=== PATIENT | female | born 1940 | race Caucasian/White ===

== ENCOUNTER 2019-08-16 07:51 | Day surgery (SDC) ==
--- NOTE | 2019-08-10 12:54 | EKG Report ---
Test Performed on : 08/10/2019 12:47:22 PM Test Reason : PAT Blood Pressure : / mmHG Vent. Rate : 076 BPM Atrial Rate : 076 BPM P-R Int : 152 ms QRS Dur : 100 ms QT Int : 420 ms P-R-T Axes : 069 079 021 degrees QTc Int : 472 ms Normal sinus rhythm. Low voltage QRS Nonspecific T wave abnormality Prolonged QT Abnormal ECG When compared with ECG of 29-SEP-2012 13:07, T wave inversion now evident in Inferior leads Nonspecific T wave abnormality now evident in Anterior leads Confirmed by Jere VALDEZ, P.J.M ([id number]) on 08/10/2019 8:00:48 PM
[2019-08-10 13:18] LABS: URINE SOURCE CLEAN CATCH
[2019-08-10 13:26] LABS: BASO% 0.1 % (0.0-0.8); EOS% 0.2 % (0.0-10.0); HEMATOCRIT 34.2 % (37.0-47.0); HEMOGLOBIN 11.1 g/dL (12.0-16.0); IMM GRAN% 0.2 % (0.0-0.5); LYMPH% 19.8 % (20.5-51.1); MCH 27.1 PG (27-31); MCHC 32.5 g/dL (33-37); MCV 83.6 FL (81-99); MONO% 10.2 % (1.7-9.3); NEUT% 69.5 % (42.2-75.2); PLT 247 X1000 (130-400); RBC 4.09 XMIL (4.2-5.4); RDW 14.6 % (11.5-14.5); WBC 10.55 X1000 (4.8-10.8)
[2019-08-10 13:27] LABS: BASO# 0.01 X1000 (0.0-0.2); EOS# 0.02 X1000 (0.0-0.7); IMM GRAN# 0.02 X1000 (0.0-0.04); LYMPH# 2.09 X1000 (1.2-3.4); MONO# 1.08 X1000 (0.11-0.59); NEUT# 7.33 X1000 (1.4-6.5)
[2019-08-10 13:40] LABS: INR 1.17; PROTIME 15.1 Seconds (11.0-16.0); PTT 29.5 Seconds (22.3-41.8)
[2019-08-10 13:43] LABS: BILIRUBIN URINE NEGATIVE (NEGATIVE); BLOOD URINE NEGATIVE (NEGATIVE); COLOR YELLOW; GLUCOSE URINE NEGATIVE (NEGATIVE); KETONE URINE NEGATIVE (NEGATIVE); LEUKOCYTES URINE NEGATIVE (NEGATIVE); NITRITE URINE NEGATIVE (NEGATIVE); PH URINE 5.5; PROTEIN URINE NEGATIVE (NEGATIVE); SP GRAVITY URINE 1.027; TURBIDITY URINE CLEAR (CLEAR); UROBILINOGEN URINE 3 mg/dL (NORMAL)
[2019-08-10 13:45] LABS: UR EPITHELIAL CELLS <10 /HPF (<10); URINE BACTERIA NEGATIVE /HPF; URINE RBC <10 /HPF (<10); URINE WBC <10 /HPF (<10)
[2019-08-10 13:47] LABS: HEMOGLOBIN A1C 5.9 % (4.8-6.0)
[2019-08-10 14:19] LABS: CALCIUM 9.4 mg/dL (8.8-10.2); POTASSIUM 2.9 mmol/L (3.5-5.1)
[2019-08-16] MEDS ORDERED: COLACE ONE (08:13)
[2019-08-16] MEDS ORDERED: PEPCID ONE (08:13)
[2019-08-16] MEDS ORDERED: REGLAN ONE (08:13)
[2019-08-16] MEDS ORDERED: KEFZOL 1 GM/D5W 1 GM/50 ML IVPB ONE (08:14)
[2019-08-16] MEDS ORDERED: LYRICA ONE (08:14)
[2019-08-16] MEDS ORDERED: CELEBREX ONE (08:14)
[2019-08-16] MEDS ORDERED: LR 1,000 ML ONE (08:14)
[2019-08-16] MEDS ORDERED: FENTANYL ONE (09:13)
[2019-08-16] MEDS ORDERED: DIPRIVAN 1% ONE (09:13)
[2019-08-16] MEDS ORDERED: MARCAINE 0.25% PF ONE (09:53)
[2019-08-16] MEDS ORDERED: TORADOL ONE (09:53)
[2019-08-16] MEDS ORDERED: DURAMORPH ONE (09:53)
[2019-08-16] MEDS ORDERED: VANCOMYCIN ONE (09:53)
[2019-08-16] MEDS ORDERED: EXPAREL 1.3% ONE (09:54)
[2019-08-16] MEDS ORDERED: CYKLOKAPRON 1,000 MG/NS 2,000 MG/200 ML IVPB ONE (09:54)
[2019-08-16] MEDS ORDERED: SODIUM CHLORIDE 0.9% ONE (09:54)
[2019-08-16] MEDS ORDERED: VERSED ONE (10:27)
[2019-08-16] MEDS ORDERED: LABETALOL (DOSE) ONE (11:08)
[2019-08-16] MEDS ORDERED: APRESOLINE ONE (11:12)
[2019-08-16] MEDS ORDERED: ZOFRAN ONE (11:48)
[2019-08-16] MEDS ORDERED: OFIRMEV 1000 MG/ISOTONIC SOLN 1,000 MG/100 ML BOTTLE ONE (11:48)
[2019-08-16] MEDS ORDERED: DECADRON ONE (11:48)
[2019-08-16] MEDS ORDERED: NS 1,000 ML ONE (12:35)
[2019-08-16] MEDS: DILAUDID ONE ×2 (12:51→12:56)
--- NOTE | 2019-08-16 13:16 | Diag Imaging Result Doc PS360 ---
KNEE 1-2 VIEWS-RIGHT - 08/16/2019 INDICATION: R TKA TECHNIQUE: Two views COMPARISON: 08/08/2019 FINDINGS: There has been right total knee arthroplasty. Alignment is anatomic. No hardware fracture or loosening. IMPRESSION: No complication. Electronically signed by Juan C Aponte 08/16/2019 1:13 PM
[2019-08-16 13:31] LABS: URINE SOURCE CATH
[2019-08-16 13:34] LABS: BILIRUBIN URINE NEGATIVE (NEGATIVE); BLOOD URINE NEGATIVE (NEGATIVE); COLOR YELLOW; GLUCOSE URINE NEGATIVE (NEGATIVE); KETONE URINE NEGATIVE (NEGATIVE); LEUKOCYTES URINE NEGATIVE (NEGATIVE); NITRITE URINE NEGATIVE (NEGATIVE); PROTEIN URINE NEGATIVE (NEGATIVE); SP GRAVITY URINE 1.009; TURBIDITY URINE CLEAR (CLEAR); UROBILINOGEN URINE NORMAL (NORMAL)
[2019-08-16 13:35] LABS: UR EPITHELIAL CELLS <10 /HPF (<10); URINE BACTERIA NEGATIVE /HPF; URINE RBC <10 /HPF (<10); URINE WBC <10 /HPF (<10)
[2019-08-16] MEDS: NS 1,000 ML IV SCH ×2 (14:45→23:12)
[2019-08-16] MEDS ORDERED: MORPHINE IV PRN ×3 (14:45)
[2019-08-16] MEDS ORDERED: ZOFRAN PO PRN (14:45)
[2019-08-16] MEDS ORDERED: OXY IR PO PRN ×2 (14:45)
[2019-08-16] MEDS ORDERED: ZOFRAN ODT PO PRN (14:45)
[2019-08-16] MEDS: KEFZOL 1 GM/D5W 1 GM/50 ML IVPB IV SCH (16:59)
[2019-08-16] MEDS: TYLENOL PO SCH ×2 (16:59→23:11)
[2019-08-16] MEDS: ULTRAM PO SCH ×2 (16:59→23:11)
--- NOTE | 2019-08-16 19:34 | OPERATIVE NOTE ---
PROCEDURE DATE: 08/16/2019 PREOPERATIVE DIAGNOSIS: Degenerative joint disease with valgus deformity, right knee. POSTOPERATIVE DIAGNOSIS: Degenerative joint disease with valgus deformity, right knee. PROCEDURE: Right total knee replacement. SURGEON: Dr. Leda Garcia. MARRIAGE THERAPIST: Adalid Webster. ANESTHESIA: General. COMPLICATIONS: None. PROCEDURE IN DETAIL: 79-year-old female presents for right total knee replacement. Risks, benefits, and no guarantees were discussed and she was willing to proceed. She was taken to the operating room and satisfactory anesthesia obtained. The right leg was prepped and draped in the usual sterile fashion. A time-out was taken, confirming operative site, procedure, and patient. The leg was wrapped in an Esmarch and tourniquet inflated to 300 mmHg. A midline incision was made over the front of the knee followed by a quad tendon sparing arthrotomy. The patella was everted and resurfaced with freehand technique and subluxed laterally. With the knee flexed, an intramedullary hole was made in the distal femur and the distal femoral cutting block secured in 5 degrees of valgus. Femoral resection was made and the femur sized to a size 5 DePuy Attune femoral implant. The 4-in-1 block was secured and the anterior, posterior, and chamfer cuts sequentially made. A notch was created for a posterior stabilized design using the provided notch guide. Any remaining osteophytes were debrided off the femur. Next, the tibial cutting block was secured with extramedullary alignment and the tibial resection made. The flexion and extension gaps were equal with the 5 mm spacer. The tibia was sized to a size 5 tibial trial. A trial reduction was performed with trial components with good range of motion and stability. The patella was sized to a 35 medialized dome patella. Drill holes were placed for the patella and femoral implants, and all trial components removed. The bony surfaces were thoroughly irrigated with pulsatile lavage. Cement with 1 g of vancomycin was utilized to cement a DePuy size 5 rotating platform tibial base plate, a size 5 standard width right posterior stabilized femoral component, and a 35 medialized dome patella. While the cement cured, the excess cement was removed with a [place] elevator. The joint capsule was injected with Exparel and a Hemovac drain placed. After curing the cement, a size 5 mm thick posterior stabilized polyethylene bearing was secured into the tibial tray, and the knee reduced. Final range of motion was 0 to 120 degrees with midline patellar tracking. The arthrotomy was copiously irrigated with irrigant. It was closed over the drain with #1 Vicryl in the arthrotomy, 2-0 Vicryl in the subcu, and skin italia on the skin edges. Sterile dressings completed the closure and patient was recovered from anesthesia and transferred to the recovery room in stable condition. No intraoperative complications were noted. Instrument count and sponge count were correct at the time of closure. cc: Chele Garcia MD
--- NOTE | 2019-08-16 20:35 | ORTHOPAEDICS PROGRESS NOTE ---
DATE: 08/16/2019 SUBJECTIVE DATA: Ms. Isbell is seen postoperatively day 0 for her right total knee arthroplasty. She states she has only been up in her room for about 20 minutes. Family at bedside reports she is still somewhat sleepy. She denies pain at this time. OBJECTIVE DATA: The bandages are clean and dry throughout lower extremity. There is negative Homans sign. There is decreased sensation at this time. There is good pedal pulses. There is good capillary refill in the toes. ASSESSMENT: Degenerative joint disease right knee with right total knee arthroplasty. PLAN: We plan to hopefully get Ms. Isbell up later on this afternoon or tomorrow with physical therapy and walking. If she is doing well, we will likely send her home tomorrow. Dictated by SOPHIA Hughes for Chele Garcia MD cc: SOPHAI Hughes MD
[2019-08-16] MEDS: CELEBREX PO SCH (20:47)
[2019-08-16] MEDS: PERIDEX MT SCH (20:48)
[2019-08-16] MEDS: COLACE PO SCH (20:49)
[2019-08-17] MEDS: KEFZOL 1 GM/D5W 1 GM/50 ML IVPB IV SCH (01:24)
[2019-08-17] MEDS: NS 1,000 ML IV SCH (05:38)
[2019-08-17] MEDS: TYLENOL PO SCH ×2 (06:31→13:27)
[2019-08-17] MEDS: ULTRAM PO SCH ×2 (06:31→13:24)
[2019-08-17 07:32] LABS: HEMATOCRIT 29.9 % (37.0-47.0); HEMOGLOBIN 9.6 g/dL (12.0-16.0)
[2019-08-17 07:47] LABS: CALCIUM 8.2 mg/dL (8.8-10.2); POTASSIUM 4.5 mmol/L (3.5-5.1)
[2019-08-17] MEDS ORDERED: PEPCID PO SCH (09:00)
[2019-08-17] MEDS ORDERED: ASPIRIN PO SCH (09:00)
[2019-08-17] MEDS: PERIDEX MT SCH (09:24)
[2019-08-17] MEDS: CELEBREX PO SCH (09:25)
[2019-08-17] MEDS: COLACE PO SCH (09:25)
[2019-08-17] MEDS ORDERED: PRILOSEC PO SCH (09:30)
[2019-08-17] MEDS ORDERED: NON-FORMULARY MED (Celecoxib [Celebrex] 200 MG) PO SCH (09:30)
[2019-08-17 11:48] VITALS: BP 124/55
--- NOTE | 2019-08-17 15:10 | ORTHOPAEDICS PROGRESS NOTE ---
DATE: 08/17/2019 SUBJECTIVE DATA: Ms. Isbell reports she is feeling well today. She states her pain is a 3/10. She reports she is ready to go home and start therapy. OBJECTIVE DATA: There is good sensation right lower extremity. Her bandages are clean and dry. There is negative Homans sign. There is good range of motion of the knee. There are good pedal pulses. There is good capillary refill in the toes. Vital signs have been within normal limits. Current hemoglobin, hematocrit is 9.6, 29.9. Her potassium is much improved at 4.5. ASSESSMENT: Degenerative joint disease, right knee, with right total knee arthroplasty. PLAN: We will plan to discharge Ms. Isbell today. We will remove her drains and Piper catheter. I placed her on prescriptions for [place] 10 for pain one tablet q. 4-6 hours p.r.n. and Phenergan for nausea, as well as aspirin for DVT prophylaxis. I have also given her a prescription for Bactrim DS twice daily for infection prevention. She will need to follow up in my office in roughly 10 to 14 days for recheck. Dictated by SOPHIA Hughes for Chele Garcia MD cc: SOPHIA Hughes MD
[2019-08-18] MEDS ORDERED: PRINZIDE 10/12.5MG PO SCH (09:00)
[2019-08-18] MEDS ORDERED: CELEXA PO SCH (09:00)
== END 2019-08-17 14:22 | disposition home health service (06) ==
LOC: OPS 07:51 → 4N 07:51 → OPS 08-17 14:22
PROVIDERS: ATTEND Orthopaedic Surgery Adult Reconstructive Orthopaedic Surgery